=== PATIENT | female | born 1980 | race Caucasian/White ===

== ENCOUNTER 2020-08-11 17:34 | Emergency (ER) | payer SELFPAY ==
[~2020-08-11] VITALS: Ht 175.3 cm; Wt 77.3 kg
[2020-08-11 17:57] VITALS: BP 127/70; Ht 175.3 cm; Wt 77.3 kg
== END 2020-08-11 20:46 | disposition home or self-care (01) ==
LOC: D.ER 17:34
DX: M67.431 Ganglion, right wrist (principal)